=== PATIENT | male | born 1975 | race African-American/Black ===

== ENCOUNTER → 2019-09-26 | Outpatient (CLI) | payer BC, OTHER ==
--- NOTE | 2019-09-28 07:32 | KCIC ---
EXAM: Lumbar spine MRI without contrast. HISTORY: Sciatica. TECHNIQUE: Multiplanar, multisequence magnetic resonance imaging of the lumbar spine was performed without contrast. COMPARISON: None. FINDINGS: There is mild lumbar levoscoliosis. There is no listhesis. The vertebral bodies are normal in height. There is slight disc desiccation at L5-S1. There is no suspicious osseous lesion. There is no fracture. The conus terminates at L1. At L1-L2, L2-L3, L3-L4 and L4-L5, there is no stenosis. At L5-S1, there is a broad-based left paracentral to left lateral recess disc protrusion. There is mild right facet arthropathy. There is effacement of the left lateral recess and deviation of the traversing left S1 nerve root and mild central canal stenosis. IMPRESSION: 1. L5-S1: Broad-based left paracentral to left lateral recess disc protrusion resulting in effacement of the left lateral recess and deviation of the traversing left S1 nerve root and mild central canal stenosis. 2. No additional significant stenosis. Electronically signed by: Jayleen Jimenes MD (09/28/2019 7:29 AM) [id number]
== END | disposition home or self-care (01) ==
LOC: KCIC MRI 11:38
PROVIDERS: ATTEND Physician Assistant
DX: M51.27 Other intervertebral disc displacement, lumbosacral region (principal); M12.88 Other specific arthropathies, not elsewhere classified, other specified site; M48.08 Spinal stenosis, sacral and sacrococcygeal region
CPT/HCPCS: 72148

== ENCOUNTER → 2020-01-01 | Outpatient (CLI) | payer BC ==
[~2020-01-01] MED LIST: AMLO10TA8 PO; ATOR10TA PO; CYCL10TA2 PO; DOCU-109 PO; GABA600T7 PO; HYDR-3164 PO; METF10007 PO; PIOG30TA41 PO; VALS320T2 PO
[2020-01-01 13:28] LABS: ALBUMIN 3.8 g/dL (3.4-5.0); CALCIUM 8.2 mg/dL (8.5-10.1); GFR 97.8; POTASSIUM 3.8 mmol/L (3.5-5.1); TOTAL BILIRUBIN 0.3 mg/dL (0.2-1.0); TOTAL PROTEIN 7.6 g/dL (6.4-8.2)
[2020-01-01 13:30] LABS: BASO # 0.1 x10^3/uL (0.0-0.2); BASO % 1 % (0-3); EOS # 0.1 x10^3/uL (0.0-0.7); EOS % 1 % (0-3); HEMATOCRIT 38.1 % (39.0-53.0); HEMOGLOBIN 12.7 g/dL (13.0-17.5); LYMPH # 2.4 x10^3/uL (1.0-4.8); LYMPH % 31 % (24-48); MEAN CORPUSCULAR HEMOGLOBIN 29 pg (25-35); MEAN CORPUSCULAR HGB CONC 33 g/dL (31-37); MEAN CORPUSCULAR VOLUME 88 fL (79-100); MONO # 0.8 x10^3/uL (0.0-1.1); MONO % 10 % (0-9); NEUT # 4.4 x10^3/uL (1.8-7.7); NEUT % 57 % (31-73); PLATELET COUNT 389 x10^3/uL (140-400); RED BLOOD COUNT 4.35 x10^6/uL (4.30-5.70); WHITE BLOOD COUNT 7.7 x10^3/uL (4.0-11.0)
== END | disposition home or self-care (01) ==
LOC: SURGPAT 12:00
PROVIDERS: ATTEND Neurological Surgery
DX: Z01.818 Encounter for other preprocedural examination (principal); Z11.59 Encounter for screening for other viral diseases; M51.17 Intervertebral disc disorders with radiculopathy, lumbosacral region
CPT/HCPCS: 36415; 80053; 82962; 85025; 87641; C9803; U0003

== ENCOUNTER 2020-01-05 06:54 | Day surgery (SDC) | payer BC ==
--- NOTE | 2020-01-01 15:16 | HP ---
ADMIT DATE: 01/05/2020. DATE OF SURGERY: 01/05/2020. HISTORY OF PRESENT ILLNESS: The patient is a pleasant 44-year-old man who is having difficulty with left buttock and calf pain. He describes this as a squeezing pain. He notes a pins and needle sensation on the heel and bottom of his left foot. The problem began 2-1/2 years ago. He said he was bent over to put plates away and felt a pop in his back. He rates his pain as 7/10. He says medications and heat help him. Changing positions help him. He is taking gabapentin and Flexeril. He has been through physical therapy without benefit. He does not notice weakness in his lower extremities. PAST MEDICAL HISTORY: Headache, migraine, hypertension. PAST SURGICAL HISTORY: Cholecystectomy in 2009. FAMILY HISTORY: Hypertension and [place] at an early age. 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 . Rarely exercises. Denies substance abuse and tobacco use. Drinks alcohol 2 drinks per day. ALLERGIES: No known drug allergies. CURRENT MEDICATIONS: Losartan, amlodipine, cyclobenzaprine, and gabapentin. REVIEW OF SYSTEMS: A 12-point review of systems was obtained and is noncontributory except for that mentioned above. PHYSICAL EXAMINATION: NEUROSURGERY EXAMINATION: GENERAL APPEARANCE: Alert, pleasant, no acute distress. HEAD: Normocephalic and atraumatic. SKIN: Warm and dry. MUSCULOSKELETAL: Lumbar paraspinal muscle bulk is normal, restricted range of motion of lumbar spine, mild tenderness of the lower lumbar spine with palpation, normal range of motion of the lower extremities bilaterally. EXTREMITIES: No clubbing, cyanosis or edema. NEUROLOGIC: Alert and oriented x 3, normal recent and remote memory. Strength 5/5 in bilateral lower extremities. Sensory is intact to light touch in bilateral lower extremities except for decrease in the lateral aspect of his left foot. Reflexes were trace and symmetric in lower extremities bilaterally, straight leg raising on the left, positive cross straight leg raising on the right, normal gait. IMAGING: I reviewed a lumbar MRI scan from 09/26/2019. On that study, there is a broad-based left paracentral disk herniation at L5-S1, which does efface the left lateral recess and deviates compressing the left S1 nerve root. ASSESSMENT/ PLAN: He has a left-sided disc herniation at L5-S1, which I believe is a source of his radiculopathy. At this point, his problems have been present for 2-1/2 years. I recommended lumbar microsurgery. I discussed the surgery with him and the risks. I further explained that having problems like this for 2-1/2 years may have permanently damaged the root and limit the root's ability to recover from surgery. He understands all this. He would like to proceed with surgery. We will make the arrangements. FRANCI PEREZ MD DR: KELSIE/citlaly JOB#: [id number] / [id number] QUINN
[~2020-01-05] VITALS: Ht 180.3 cm; Wt 95.0 kg
[~2020-01-05 06:54] MED LIST changes: +BACITRACIN 50,000 UNIT in IV NORMAL SALINE 1000ML BAG 1,000 ML IRR ONE; -DOCU-109 PO; -HYDR-3164 PO
[2020-01-05] MEDS ORDERED: KETOROLAC 60 MG/2 ML VIAL. ONE (06:58)
[2020-01-05] MEDS ORDERED: GELATIN SPONGE SIZE 100. ONE (06:58)
[2020-01-05] MEDS ORDERED: BUPIVACAINE-EPI 0.5%-1:200000 MPF 30 ML VIAL. ONE (06:58)
[2020-01-05] MEDS ORDERED: THROMBIN TOPICAL 20,000 UNIT SPRAY.SYRN KIT TP ONE (06:58)
[2020-01-05] MEDS ORDERED: fentaNYL PF VIAL 100 MCG/2 ML VIAL IV PRN (07:00)
[2020-01-05] MEDS ORDERED: LIDOCAINE 1% PF 2 ML VIAL. ID PRN (07:00)
[2020-01-05] MEDS ORDERED: IV RINGERS,LACTATED 1000ML 1,000 ML IV SCH (07:00)
[2020-01-05] MEDS ORDERED: HYDROmorphone 2 MG/ML VIAL IV PRN (07:00)
[2020-01-05] MEDS ORDERED: ONDANSETRON PF 4 MG/2 ML VIAL. IV PRN (07:00)
[2020-01-05] MEDS ORDERED: PROCHLORPERAZINE 10 MG/2 ML VIAL. IV PRN (07:00)
[2020-01-05] MEDS ORDERED: MORPHINE SULFATE 2 MG/ML VIAL. IV PRN (07:00)
--- NOTE | 2020-01-05 07:41 | EKG ---
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
[2020-01-05] MEDS: INSULIN LISPRO 100 UNIT/ML 3ML VIAL for OP,RR ONLY. SQ PRN ×2 (07:43→08:53)
[2020-01-05] MEDS ORDERED: DEXAMETHASONE SOD PHOS 20 MG/5 ML VIAL. ONE (07:53)
[2020-01-05] MEDS ORDERED: PROPOFOL 10 MG/ML (20ML) VIAL. IV ONE (07:53)
[2020-01-05] MEDS ORDERED: ONDANSETRON PF 4 MG/2 ML VIAL. ONE (07:53)
[2020-01-05] MEDS ORDERED: PROPOFOL 50 ML IV ONE ×2 (07:53→09:22)
[2020-01-05] MEDS ORDERED: REMIFENTANIL 2 MG VIAL. IV ONE (07:53)
[2020-01-05] MEDS ORDERED: LIDOCAINE 2% PF 5 ML VIAL. ONE (07:53)
[2020-01-05] MEDS ORDERED: ROCURONIUM 50 MG/5 ML VIAL. ONE (07:53)
[2020-01-05] MEDS ORDERED: SUCCINYLCHOLINE 200 MG/10 ML VIAL. ONE (07:54)
[2020-01-05] MEDS ORDERED: GLYCOPYRROLATE 1 MG/5 ML VIAL. ONE (08:34)
[2020-01-05] MEDS ORDERED: DESFLURANE > 120 MINUTES IH ONE (08:35)
[2020-01-05] MEDS ORDERED: ESMOLOL 100 MG/10 ML VIAL. IVP ONE (09:21)
[2020-01-05] MEDS ORDERED: KETOROLAC 30 MG/ML VIAL. ONE (09:39)
[2020-01-05] MEDS ORDERED: PHENYLEPHRINE 10 MG/ML VIAL. ONE (09:55)
[2020-01-05] MEDS ORDERED: HYDR-3164 PO (10:35)
[2020-01-05] MEDS ORDERED: DOCU-109 PO (10:35)
--- NOTE | 2020-01-05 10:37 | DISCH ---
DISCHARGE INSTRUCTIONS Condition on Discharge Condition on Discharge: Stable Activity After Discharge Activity Instructions for Disc: Activity as tolerated, Avoid exertion Other activity instructions: no driving for a week Bathing Instructions: Shower-keep dressing dry Lifting Instructions after Dis: No heavy lifting, No pulling or pushing, Do not lift >10 pounds Diet after Discharge Additional Diet Restrictions: resume home diet Wound Incision Care Wound/Incision Care: Ice to area for comfort Other wound/incision instructi: may remove dressing in 48 hours if dry then may shower, no soaking Contacting the after DC Call your doctor for: Concerns you may have Follow-Up Follow up with: Dr. Perez's nurse in 2 weeks [phone] FRANCI PEREZ MD Jan 05, 2020 10:37
[2020-01-05] MEDS ORDERED: NEOSTIGMINE METHYLSULFATE 5 MG/5 ML SYRINGE. ONE (10:50)
[2020-01-05] MEDS ORDERED: fentaNYL PF VIAL 100 MCG/2 ML VIAL ONE (11:29)
[2020-01-05] MEDS: fentaNYL PF VIAL 100 MCG/2 ML VIAL IV PRN ×2 (11:32→11:54)
--- NOTE | 2020-01-05 11:42 | OP ---
DATE OF SURGERY: 01/05/2020 PREOPERATIVE DIAGNOSES: Herniated lumbar disc, L5-S1 left with left lumbar radiculopathy. POSTOPERATIVE DIAGNOSIS: Herniated lumbar disc L5-S1 left with left lumbar radiculopathy. OPERATIONS PERFORMED: Hemilaminotomy and microdiscectomy L5-S1, left. The operation was done with monitoring including EMG and SSEP. Fluoroscopy was used as well as the microscope with microscopic dissection. SURGEON: Refugio Perez M.D. MACHINED PARTS METAL SPRAYER: ESTEFANÍA Marina OPERATIVE INDICATIONS: The patient is a very pleasant 44-year-old man who developed back and left leg pain about 2-1/2 years prior that problem continued to the present time. He rates his pain as 7/10. He says that he went through physical therapy without benefit. On imaging studies, there was a focal disc herniation at L5-S1 on the left and I recommended lumbar microsurgery. I spoke with him about the surgery, the risks, technique and expected postoperative course. I also discussed the likelihood of having continued pain, may be the nerve could be permanently damaged and he may not notice significant recovery. DESCRIPTION OF PROCEDURE: Following general endotracheal anesthesia, the patient was positioned prone on the Jonathan table. Lumbar region prepped and draped in standard fashion. MILTON hose and AV impulse boots were applied for DVT prophylaxis. A microscope was draped. Fluoroscopy was draped and brought into field. Monitoring was established. Ancef 2 grams was given less than 1 hour prior to initiation of the surgery. Using fluoroscopic guidance, a small midline incision was made at L5-S1. I dissected down through skin and subcutaneous tissue, reflected the paraspinal muscles and placed a Milton microdisk retractor. I brought in the microscope and cleared away some of the overlying scar with the long curettes and then used the drill to prevent a generous hemilaminotomy and partial foraminotomy. I trimmed away the ligamentum flavum, exposed the dura and the exiting root. There was considerable scarring over the nerve and lateral to the nerve. I developed a plane lateral to the nerve and was able to work down to the bone and then retracted the nerve root gently medially with a micro nerve root retractor. There was bulging disc and I incised the ligament and annulus and performed discectomy and as I worked, the root became much freer. We were careful as we positioned the patient tilting to one side to improve exposure. The C-arm was always carefully maintained away from the arms. I did use small amounts of bone wax as well as bipolar cautery as I worked to ensure perfect hemostasis and then I explored carefully using blunt hook superiorly, medially, inferiorly and I assured myself that the region was very well decompressed following a generous discectomy. The root was tightly compressed at the beginning, it was quite mobile at the end. I irrigated with antibiotic solution, removed the retractor, obtained hemostasis in the muscle, irrigated again, closed the fascia, subcutaneous tissue and then the skin was closed with 4-0 subcuticular stitch. I felt the surgery went very well. REFUGIO PEREZ MD DR: KELSIE/citlaly JOB#: [id number] / [id number] QUINN
[2020-01-05] MEDS: HYDROcodone/APAP 5/325MG 1 TAB TABLET PO ONE (12:00)
[2020-01-05 12:30] VITALS: BP 154/83
[2020-01-05] MEDS ORDERED: HYDROcodone/APAP 5/325MG 1 TAB TABLET PO ONE (13:00)
--- NOTE | 2020-01-07 14:07 | PATHOLOGY ---
[facility] Accession Number: [id number] . 01 Material submitted: . vertebral column - LUMBER DISC AND DECOMPRESSION . 01 Clinical history: . Lumbar herniated disc with radiculopathy . 02 Diagnosis: Segments of fibrocartilaginous and adipose tissue and bone, lumbar disc and decompression: - Degenerative changes of fibrocartilaginous tissue. LBQ 01/06/2020 1650 Local . 02 Comment: There is no evidence of an acute inflammatory process or malignancy. (JPM/db; 01/06/2020) . 02 Electronically signed: . Chuy Henry MD, Pathologist NPI- [id number] . 01 Gross description: . The specimen is received in formalin, labeled "Phagan, Antwoni, lumbar disc and decompression" and consists of multiple segments of pink-cook, rubbery and gritty tissue and bone, measuring 4.0 x 3.0 x 0.6 cm in aggregate. A account retention representative portion is submitted in A1 following decalcification. (SDY; 01/05/2020) SYU/SYU 01/06/2020 1648 Local . 02 Pathologist provided ICD-10: M51.36 . 02 CPT . 796403, [id number] Specimen Comment: A courtesy copy of this report has been sent to [phone], [phone] Specimen Comment: [id number] Specimen Comment: Report sent to / DR BARRY Performed at: 01 [facility] [address] [facility] [address], [place] [id number] MD German Bernal MD Phone: [phone] Performed at: 02 [facility] [address] [place], [place] [id number] MD Chuy Henry MD Phone: [phone]
== END 2020-01-05 13:20 | disposition home or self-care (01) ==
LOC: SURG 06:54
PROVIDERS: ATTEND Neurological Surgery
DX: M51.16 Intervertebral disc disorders with radiculopathy, lumbar region (principal); G43.909 Migraine, unspecified, not intractable, without status migrainosus; I10 Essential (primary) hypertension; Z90.49 Acquired absence of other specified parts of digestive tract; Z79.899 Other long term (current) drug therapy
CPT/HCPCS: 63030; 82962; 88304; 88311; 93005; 97161; A7015; J0330; J0696; J1815; J1885; J2370; J2405; J2704; J2710; J3010; J3490; J7030; J7120; 76000; J1100